=== PATIENT | female | born 1970 | race Caucasian/White ===

== ENCOUNTER → 2020-01-13 | Day surgery (SDC) | payer BC, OTHER ==
[~2020-01-13] MED LIST: Lactated Ringers 1,000 ML IV SCH; Propofol 200 MG/20 ML SDV IV ONE
[2020-01-13 10:26] VITALS: BP 142/85; PULSE 77
--- NOTE | 2020-01-13 14:16 | OR ---
DATE OF OPERATION: 01/13/2020 PREOPERATIVE DIAGNOSIS: SCREENING COLONOSCOPY. POSTOPERATIVE DIAGNOSIS: SCREENING COLONOSCOPY. SURGEON: Mike Wright MD PROCEDURE: FULL-LENGTH COLONOSCOPY WITH SNARE POLYPECTOMY X2. ANESTHESIA: MAC. COMPLICATIONS: None. SPECIMEN: Two large tubulovillous adenomas, right colon. FINDINGS: 1. Full-length colonoscopy. 2. Pandiverticulosis, moderate. 3. Tubulovillous adenomas, cecum and hepatic flexure. RECOMMENDATIONS: Followup colonoscopy in 3 years. INDICATIONS: The patient was sent for a screening colonoscopy due to her age. DESCRIPTION OF PROCEDURE: The patient was prepped and draped, placed in the left lateral decubitus position. A lubricated Olympus colonoscope was inserted and easily advanced to the cecum. Direct visualization of the ileocecal valve and appendiceal orifice was accomplished. The bowel prep was fine. Upon withdrawal of the scope, right outside the ileocecal valve, the patient had a slightly stalked tubulovillous adenoma, about 8 mm in size, removed with a snare and suctioned into polyp trap #1. The rest of the ascending colon was benign. Just past the hepatic flexure, the patient had a deeper villous adenoma in the haustral fold. We were able to get a snare around this, remove it without problem, and suction into polyp trap #2 without problem. This was close to a centimeter in size. The rest of the transverse and descending colon were unremarkable. The patient does have diverticular disease even over the right colon, most significant in the sigmoid as expected. The left colon had no other polyps, masses, ulceration, or bleeding sites. No vascular abnormalities or signs of colitis. Rectal vault was benign. Retroflexion of the scope in the rectum showed no anal lesions. Air was suctioned, scope removed without complication. JACOBY/FLORESITA /[id number]
== END ==
LOC: CC.SDS 08:18
PROVIDERS: ATTEND Family Medicine
DX: Z12.11 Encounter for screening for malignant neoplasm of colon (principal); D12.0 Benign neoplasm of cecum; D12.3 Benign neoplasm of transverse colon; K57.30 Diverticulosis of large intestine without perforation or abscess without bleeding; I10 Essential (primary) hypertension; M17.32 Unilateral post-traumatic osteoarthritis, left knee; G44.209 Tension-type headache, unspecified, not intractable; F17.210 Nicotine dependence, cigarettes, uncomplicated; Z79.899 Other long term (current) drug therapy
CPT/HCPCS: 45385; J2704; J7120

== ENCOUNTER 2020-03-23 22:40 | Observation (INO) | payer BC ==
[2020-03-23] MEDS: Aspirin 81 MG Tab.Chew PO ONE (22:55)
[2020-03-23] MEDS: EPINEPHrine 1 MG/1 ML Amp SUBCUT ONE (23:25)
[2020-03-23] MEDS: Albuterol/Ipratropium 3.0-0.5 MG/3 ML Neb Soln NEB ONE (23:28)
[2020-03-23] MEDS: diphenhydrAMINE 50 MG/ML SDV IVPUSH ONE (23:28)
[2020-03-23] MEDS: methylPREDNISolone Sodium Succinate 125 MG/2 ML SDV IVPUSH STA (23:29)
[2020-03-23 23:32] LABS: CHLORIDE,CL 100 mEq/L (98-106); SODIUM,NA 137 mEq/L (136-145)
[2020-03-23] MEDS: Famotidine 20 MG/2 ML SDV IVPUSH ONE (23:33)
--- NOTE | 2020-03-23 23:33 | EDM.PDOC ---
ED HPI GENERAL MEDICAL PROBLEM - General Chief Complaint: Chest Pain Stated Complaint: chest pain, short of breath Time Seen by Provider: 03/23/20 23:23 Source of Information: Reports: Patient History Limitations: Reports: No Limitations - History of Present Illness INITIAL COMMENTS - FREE TEXT/NARRATIVE: This patient is a 49 year old female that presents to the ER. Patient reports that a couple of hours ago she got some bad news about her sister, then got in an argument with her 14 year old son. She reports at that time 2 hours ago, she started to have pain in her left chest that is tight pressure. She reports with it she had some reflux. She reports she became nauseated and short of breath with it. She reports it became very hard to breath and her chest became tight with pain continued in her left chest. She reports she felt flushed. She reports this pain and tightness and shortness of breath worsened. She reports she could not breath and the pain made her come to the ER. When I enter the room , patient face is erythematous, swollen. Patient has rash to RUE and abd appearance consistent with hives. Patient reports it feels like she cant breath and her chest hurts and she feels nauseated. She reports her pain in chest is 7/ 10. Patient appears to be having an anaphylaxis. Medications ordered. Onset: Today Onset Date: 03/23/20 Onset Time: 09:30 Duration: Hour(s): (2), Getting Worse Location: Reports: Face, Chest, Abdomen Front/Back Body Image: 1 - erythema, swelling 2 - erythema 3 - erythema Severity: Severe Improves with: Reports: None Worsens with: Reports: None Associated Symptoms: Reports: Diaphoresis, Rash, Shortness of Breath Left Chest Pain Score (Numeric/FACES): 5 - Related Data Allergies Allergy/AdvReac Type Severity Reaction Status Date / Time No Known Allergies Allergy Verified 03/23/20 23:43 Home Meds: Home Meds . [No Known Home Meds] 03/23/20 [History] Past Medical History - Past Surgical History Musculoskeletal Surgical History: Reports: Other (See Below) ED ROS ALLERGIC REACTION - Review of Systems Review Of Systems: See Below Constitutional: Reports: Diaphoresis HEENT: Reports: Throat Swelling, Other (facial swelling, facial redness.) Respiratory: Reports: Shortness of Breath, Wheezing, Other (chest tightness) Cardiovascular: Reports: Chest Pain Endocrine: Reports: No Symptoms GI/Abdominal: Reports: Abdominal Pain, Nausea, Other (reflux sensation). Denies : Vomiting : Reports: No Symptoms Musculoskeletal: Reports: No Symptoms Skin: Reports: Rash (RUE, face, abd.), Erythema Neurological: Reports: No Symptoms. Denies: Confusion, Dizziness, Headache, Seizure, Syncope, Tremors, Difficulty Walking, Weakness, Change in Speech, Gait Disturbance Psychiatric: Reports: Anxiety Hematologic/Lymphatic: Reports: No Symptoms Immunologic: Reports: Anaphylaxis ED EXAM GENERAL NO PERIP PULSE - Physical Exam Exam: See Below Exam Limited By: No Limitations General Appearance: Alert, Anxious, Moderate Distress Eye Exam: Bilateral Eye: EOMI, Normal Inspection, Vision Changes Ears: Normal External Exam, Normal Canal, Hearing Grossly Normal, Normal TMs Nose: Normal Inspection, Normal Mucosa, No Blood Throat/Mouth: Normal Inspection, Normal Lips, Normal Teeth, Normal Gums, Normal Oropharynx, Normal Voice. No: Inflammation (facial), Perioral Cyanosis Head: Facial Swelling (with erythema entire face. no lips or tongue) Neck: Normal Inspection, Supple, Non-Tender, Full Range of Motion. No: Lymphadenopathy (L), Lymphadenopathy (R) Respiratory/Chest: Decreased Breath Sounds (mild), Wheezing Cardiovascular: Normal Peripheral Pulses, Regular Rate, Rhythm, No Edema, No Gallop, No JVD, No Murmur, No Rub GI/Abdominal: Normal Bowel Sounds, Soft, Non-Tender, No Organomegaly, No Distention, No Abnormal Bruit, Pelvis Stable Back Exam: Normal Inspection, Full Range of Motion. No: CVA Tenderness (L), CVA Tenderness (R) Extremities: Redness (hive like rash RUE.) Neurological: Alert, Oriented, Normal Cognition, Normal Gait, No Motor/Sensory Deficits. No: Abnormal Gait Psychiatric: Anxious Skin Exam: Erythema (entire face), Rash (hive like rash RUE and abdomen) Lymphatic: No Adenopathy Course - Vital Signs Last Recorded V/S: Last Vital Signs Temp 97.9 F 03/24/20 00:06 Pulse 92 03/24/20 00:06 Resp 16 03/24/20 00:06 BP 112/67 03/24/20 00:06 Pulse Ox 99 03/24/20 00:06 - Orders/Labs/Meds Orders: Active Orders 24 hr Category Date Time Status Cardiac Monitoring [RC] . DIRECTED Care 03/23/20 23:27 Active Oxygen Therapy, ED [RC] ASDIRECTED Care 03/23/20 22:52 Active RT Aerosol Therapy [RC] ASDIRECTED Care 03/23/20 23:25 Active Chest 2V [CR] Stat Exams 03/23/20 22:49 Taken Labs: Laboratory Tests 03/23/20 03/23/20 03/23/20 Range/Units 22:49 22:50 22:50 WBC 9.1 (5.0-10.0) 10^3/uL RBC 4.92 (4.00-5.50) 10^6/uL Hgb 15.2 (12.0-16.0) g/dL Hct 44.4 (37.0-47.0) % MCV 90.2 (82.0-94.0) fL MCH 30.9 (27.0-32.0) pg MCHC 34.2 (33.0-38.0) g/dL RDW Coeff of Sharmila 14.2 (11.0-15.0) % Plt Count 372 (150-400) 10^3/uL Neut % (Auto) 32.7 L (35-85) % Lymph % (Auto) 56.8 H (10-55) % Floyd % (Auto) 5.4 (0-16) % Eos % (Auto) 4.4 (0-5) % Baso % (Auto) 0.7 (0-3) % Neut # (Auto) 2.98 (1.80-7.00) 10^3/uL Lymph # (Auto) 5.16 H (1.00-4.80) 10^3/uL Floyd # (Auto) 0.49 (0.00-0.80) 10^3/uL Eos # (Auto) 0.40 (0.00-0.45) 10^3/uL Baso # (Auto) 0.06 10^3/uL PT 9.9 (9.7-12.3) SEC INR 0.98 (0.92-1.18) APTT 23.4 (23.2-32.3) SEC D-Dimer, Quantitative 0.38 (0.00-0.50) Sodium 137 (136-145) mEq/L Potassium 2.8 L* D (3.5-5.0) mEq/L Chloride 100 (98-106) mEq/L Carbon Dioxide 21 (21-32) mmol/L BUN 7 (7-18) mg/dL Creatinine 0.9 (0.6-1.0) mg/dL Est Cr Clr Drug Dosing TNP Estimated GFR (MDRD) > 60 (>=60) mL/min Glucose 98 (75-99) mg/dL Calcium 8.3 L (8.4-10.1) mg/dL Total Bilirubin 0.3 (0.0-1.0) mg/dL AST 22 (15-37) U/L ALT 29 (12-78) U/L Alkaline Phosphatase 103 (46-116) U/L Lactate Dehydrogenase 159 (100-190) U/L Creatine Kinase 85 (21-215) U/L Troponin I < 0.017 (0.00-0.06) ng/mL Total Protein 6.8 (6.4-8.2) g/dL Albumin 3.2 L (3.4-5.0) g/dL Lipase 95 (73-393) U/L Ethyl Alcohol (0-3) mg/dL 03/23/20 Range/Units 23:36 WBC (5.0-10.0) 10^3/uL RBC (4.00-5.50) 10^6/uL Hgb (12.0-16.0) g/dL Hct (37.0-47.0) % MCV (82.0-94.0) fL MCH (27.0-32.0) pg MCHC (33.0-38.0) g/dL RDW Coeff of Sharmila (11.0-15.0) % Plt Count (150-400) 10^3/uL Neut % (Auto) (35-85) % Lymph % (Auto) (10-55) % Floyd % (Auto) (0-16) % Eos % (Auto) (0-5) % Baso % (Auto) (0-3) % Neut # (Auto) (1.80-7.00) 10^3/uL Lymph # (Auto) (1.00-4.80) 10^3/uL Floyd # (Auto) (0.00-0.80) 10^3/uL Eos # (Auto) (0.00-0.45) 10^3/uL Baso # (Auto) 10^3/uL PT (9.7-12.3) SEC INR (0.92-1.18) APTT (23.2-32.3) SEC D-Dimer, Quantitative (0.00-0.50) Sodium (136-145) mEq/L Potassium (3.5-5.0) mEq/L Chloride (98-106) mEq/L Carbon Dioxide (21-32) mmol/L BUN (7-18) mg/dL Creatinine (0.6-1.0) mg/dL Est Cr Clr Drug Dosing Estimated GFR (MDRD) (>=60) mL/min Glucose (75-99) mg/dL Calcium (8.4-10.1) mg/dL Total Bilirubin (0.0-1.0) mg/dL AST (15-37) U/L ALT (12-78) U/L Alkaline Phosphatase (46-116) U/L Lactate Dehydrogenase (100-190) U/L Creatine Kinase (21-215) U/L Troponin I (0.00-0.06) ng/mL Total Protein (6.4-8.2) g/dL Albumin (3.4-5.0) g/dL Lipase (73-393) U/L Ethyl Alcohol 138 H (0-3) mg/dL Meds: Medications Discontinued Medications Generic Name Dose Route Start Last Admin Trade Name Freq PRN Reason Stop Dose Admin Albuterol/Ipratropium 3 ml 03/23/20 23:24 03/23/20 23:28 Duoneb 3.0-0.5 Mg/3 Ml NEB 03/23/20 23:25 3 ml ONETIME ONE Administration Albuterol/Ipratropium Confirm 03/23/20 23:09 03/23/20 23:50 Duoneb 3.0-0.5 Mg/3 Ml Administered 03/23/20 23:10 Not Given Dose 3 ml .ROUTE .STK-MED ONE Aspirin 324 mg 03/23/20 22:49 03/23/20 22:55 Aspirin PO 03/23/20 22:50 324 mg ONETIME ONE Administration Diphenhydramine HCl 50 mg 03/23/20 23:24 03/23/20 23:28 Benadryl IVPUSH 03/23/20 23:25 50 mg ONETIME ONE Administration Epinephrine HCl 0.3 mg 03/23/20 23:26 03/23/20 23:25 Adrenalin SUBCUT 03/23/20 23:27 0.3 mg ONETIME ONE Administration Famotidine 20 mg 03/23/20 23:25 03/23/20 23:33 Pepcid IVPUSH 03/23/20 23:26 20 mg ONETIME ONE Administration Sodium Chloride 1,000 mls @ 1,000 mls/hr 03/24/20 00:03 Normal Saline IV 03/24/20 01:02 .BOLUS ONE Methylprednisolone Sodium Succinate 125 mg 03/23/20 23:25 03/23/20 23:29 Solu-Medrol IVPUSH 03/23/20 23:26 125 mg NOW STA Administration - Re-Assessments/Exams Free Text/Narrative Re-Assessment/Exam: 03/23/20 23:56 Patient does report that her breathing has improved some. She is currently at 99 % on 2L NC. Her facial swelling has improved significantly, along with her erythema to face. Her hive like rash to the RUE and Abd are resolved. Lungs are sounding more clear. The patient does report her deleon in her left chest is still 5/10. Patient does report that she is a smoker. She reports she was diagnosed with HTN, but could not afford medications. She reports that she drinks about 1- 2 days per week, about 9-10 beers each time. 03/24/20 00:20 The patient reports her chest pain is now down to a 4/10. She reports she is starting to feel much better. She looks much more comfortable. She is no longer jittery, erythema resolved, facial swelling resolved. She reports she is no longer short of breath. I will admit patient, repeat cardiac labs, and monitoring and evaluation advisor. Will also start on K+. Departure - Departure Time of Disposition: 00:23 Disposition: Refer to Observation Condition: Fair Clinical Impression: Hypokalemia, Atypical chest pain Anaphylactic reaction Qualifiers: Encounter type: initial encounter Qualified Code(s): T78.2XXA - Anaphylactic shock, unspecified, initial encounter - Discharge Information *PRESCRIPTION DRUG MONITORING PROGRAM REVIEWED*: Not Applicable *COPY OF PRESCRIPTION DRUG MONITORING REPORT IN PATIENT ELMER: Not Applicable Referrals: PCP,None [Primary Care Provider] - Forms: ED Department Discharge Sepsis Event Note - Focused Exam Vital Signs: Vital Signs Temp Pulse Resp BP Pulse Ox 03/24/20 00:06 97.9 F 92 16 112/67 99 03/23/20 23:45 96.9 F 82 16 129/79 99 03/23/20 23:25 98.4 F 81 16 130/73 99 03/23/20 23:10 91 18 138/81 96 03/23/20 22:55 81 16 112/66 95 03/23/20 22:40 98.4 F 81 20 130/73 94 L Date Exam was Performed: 03/24/20 Time Exam was Performed: 00:23 - My Orders Last 24 Hours: My Active Orders 03/23/20 22:49 Chest 2V [CR] Stat 03/23/20 22:52 Oxygen Therapy, ED [RC] ASDIRECTED 03/23/20 23:25 RT Aerosol Therapy [RC] ASDIRECTED 03/23/20 23:27 Cardiac Monitoring [RC] . DIRECTED - Assessment/Plan Last 24 Hours: My Active Orders 03/23/20 22:49 Chest 2V [CR] Stat 03/23/20 22:52 Oxygen Therapy, ED [RC] ASDIRECTED 03/23/20 23:25 RT Aerosol Therapy [RC] ASDIRECTED 03/23/20 23:27 Cardiac Monitoring [RC] . DIRECTED Plan: PLEASE SEE RN NOTE FOR PFSH PLEASE USE ER H&P ADMIT H&P
[2020-03-23 23:41] LABS: PTT,PARTIAL THROMBOPLSTIN TIME 23.4 SEC (23.2-32.3)
[2020-03-23] MEDS: Albuterol/Ipratropium 3.0-0.5 MG/3 ML Neb Soln ONE (23:50)
[2020-03-24] MEDS ORDERED: Acetaminophen/HYDROcodone 325-5 MG Tab PO PRN (00:47)
[2020-03-24] MEDS ORDERED: Albuterol/Ipratropium 3.0-0.5 MG/3 ML Neb Soln NEB PRN (00:47)
[2020-03-24] MEDS ORDERED: Ondansetron 4 MG/2 ML SDV IV PRN (00:47)
[2020-03-24] MEDS ORDERED: Ibuprofen 200 MG Tab PO PRN (00:47)
[2020-03-24] MEDS ORDERED: Morphine 2 MG/ML Syringe IVPUSH PRN (00:47)
[2020-03-24] MEDS: NS + KCl 20mEq/L 1,000 ML IV SCH (01:24)
[2020-03-24] MEDS: Sodium Chloride 0.9% 1,000 ML IV ONE (02:43)
[2020-03-24 08:20] VITALS: BP 127/76; PULSE 72
--- NOTE | 2020-03-24 09:31 | PCM.DCSUM1 ---
Discharge Summary - Hospital Course HPI Initial Comments: This patient was admitted for anaphylaxis reaction and chest pain and hypokalemia. All have been corrected. Her Potassium is now wnl. Her chest pain and shortness of breath and rash is completely resolved. I will discharge this patient. I discussed with the patient that she should see her PCP this week for followup and will prescribe an epi pen as needed. I did explain to her that her troponins and ekg were okay, but if her pain in chest returns she should return to the ER, and discuss this with her PCP for possible stress test. But, I do believe it was related to her allergic reaction since it is now resolved. - Discharge Data Discharge Date: 03/24/20 Discharge Disposition: Home, Self-Care 01 Condition: Good - Referral to Home Health Primary Care Physician: PCP None - Patient Instructions Diet: Usual Diet as Tolerated Activity: As Tolerated Driving: May Drive Today Showering/Bathing: May Shower Notify Provider of: Fever, Increased Pain, Swelling and Redness, Drainage, Nausea and/or Vomiting Other/Special Instructions: Followup with your primary care provider this week. Return to the ER for worsening of condition or any emergent concerns. Use Epi Pen as needed for severe allergic reaction - Discharge Plan *PRESCRIPTION DRUG MONITORING PROGRAM REVIEWED*: Not Applicable *COPY OF PRESCRIPTION DRUG MONITORING REPORT IN PATIENT [place]: Not Applicable Prescriptions/Med Rec: EPINEPHrine [Epipen 2-Angel] 0.3 mg IJ ASDIRECTED #1 auto.injct Home Medications: Home Meds EPINEPHrine [Epipen 2-Angel] 0.3 mg IJ ASDIRECTED #1 auto.injct 03/24/20 [Rx] Oxygen Therapy Mode: Room Air Patient Handouts: Epinephrine Injection, Anaphylactic Reaction, Adult, Easy-to- Read Forms: ED Department Discharge Referrals: PCP,None [Primary Care Provider] - - Discharge Summary/Plan Comment DC Time >30 min.: No Discharge Summary/Plan Comment: Patient is to followup with her PCP this week for a recheck. She has low HEART score and her CP is resolved. If this continues, she should be evaluated by her PCP and possible stress test. - General Info Functional Status: Reports: Pain Controlled, Tolerating Diet, Ambulating, Urinating - Review of Systems General: Reports: No Symptoms HEENT: Reports: No Symptoms Pulmonary: Reports: No Symptoms. Denies: Shortness of Breath, Pleuritic Chest Pain, Cough, Sputum, Hemoptysis, Wheezing Cardiovascular: Reports: No Symptoms. Denies: Chest Pain, Palpitations, Dyspnea on Exertion, Edema, Lightheadedness Gastrointestinal: Reports: No Symptoms. Denies: Abdominal Pain, Nausea, Vomiting Genitourinary: Reports: No Symptoms Musculoskeletal: Reports: No Symptoms Skin: Reports: No Symptoms Neurological: Reports: No Symptoms Psychiatric: Reports: No Symptoms - Patient Data Vitals - Most Recent: Last Vital Signs Temp 99.1 F 03/24/20 08:00 Pulse 72 03/24/20 08:00 Resp 18 03/24/20 08:00 BP 127/76 03/24/20 08:00 Pulse Ox 98 03/24/20 08:00 Weight - Most Recent: 213 lb 4.8 oz Lab Results - Last 24 hrs: Laboratory Results - last 24 hr 03/23/20 03/23/20 03/23/20 Range/Units 22:49 22:50 22:50 WBC 9.1 (5.0-10.0) 10^3/uL RBC 4.92 (4.00-5.50) 10^6/uL Hgb 15.2 (12.0-16.0) g/dL Hct 44.4 (37.0-47.0) % MCV 90.2 (82.0-94.0) fL MCH 30.9 (27.0-32.0) pg MCHC 34.2 (33.0-38.0) g/dL RDW Coeff of Sharmila 14.2 (11.0-15.0) % Plt Count 372 (150-400) 10^3/uL Neut % (Auto) 32.7 L (35-85) % Lymph % (Auto) 56.8 H (10-55) % Finney % (Auto) 5.4 (0-16) % Eos % (Auto) 4.4 (0-5) % Baso % (Auto) 0.7 (0-3) % Neut # (Auto) 2.98 (1.80-7.00) 10^3/uL Lymph # (Auto) 5.16 H (1.00-4.80) 10^3/uL Finney # (Auto) 0.49 (0.00-0.80) 10^3/uL Eos # (Auto) 0.40 (0.00-0.45) 10^3/uL Baso # (Auto) 0.06 10^3/uL PT 9.9 (9.7-12.3) SEC INR 0.98 (0.92-1.18) APTT 23.4 (23.2-32.3) SEC D-Dimer, Quantitative 0.38 (0.00-0.50) Sodium 137 (136-145) mEq/L Potassium 2.8 L* D (3.5-5.0) mEq/L Chloride 100 (98-106) mEq/L Carbon Dioxide 21 (21-32) mmol/L BUN 7 (7-18) mg/dL Creatinine 0.9 (0.6-1.0) mg/dL Est Cr Clr Drug Dosing TNP Estimated GFR (MDRD) > 60 (>=60) mL/min Glucose 98 (75-99) mg/dL Calcium 8.3 L (8.4-10.1) mg/dL Total Bilirubin 0.3 (0.0-1.0) mg/dL AST 22 (15-37) U/L ALT 29 (12-78) U/L Alkaline Phosphatase 103 (46-116) U/L Lactate Dehydrogenase 159 (100-190) U/L Creatine Kinase 85 (21-215) U/L Troponin I < 0.017 (0.00-0.06) ng/mL Total Protein 6.8 (6.4-8.2) g/dL Albumin 3.2 L (3.4-5.0) g/dL Lipase 95 (73-393) U/L Ethyl Alcohol (0-3) mg/dL 03/23/20 03/24/20 03/24/20 Range/Units 23:36 02:00 05:11 WBC 5.1 (5.0-10.0) 10^3/uL RBC 4.86 (4.00-5.50) 10^6/uL Hgb 14.9 (12.0-16.0) g/dL Hct 44.3 (37.0-47.0) % MCV 91.2 (82.0-94.0) fL MCH 30.7 (27.0-32.0) pg MCHC 33.6 (33.0-38.0) g/dL RDW Coeff of Sharmila 14.3 (11.0-15.0) % Plt Count 372 (150-400) 10^3/uL Neut % (Auto) 72.3 (35-85) % Lymph % (Auto) 26.5 (10-55) % Finney % (Auto) 0.6 (0-16) % Eos % (Auto) 0.2 (0-5) % Baso % (Auto) 0.4 (0-3) % Neut # (Auto) 3.71 (1.80-7.00) 10^3/uL Lymph # (Auto) 1.36 (1.00-4.80) 10^3/uL Finney # (Auto) 0.03 (0.00-0.80) 10^3/uL Eos # (Auto) 0.01 (0.00-0.45) 10^3/uL Baso # (Auto) 0.02 10^3/uL PT (9.7-12.3) SEC INR (0.92-1.18) APTT (23.2-32.3) SEC D-Dimer, Quantitative (0.00-0.50) Sodium (136-145) mEq/L Potassium (3.5-5.0) mEq/L Chloride (98-106) mEq/L Carbon Dioxide (21-32) mmol/L BUN (7-18) mg/dL Creatinine (0.6-1.0) mg/dL Est Cr Clr Drug Dosing Estimated GFR (MDRD) (>=60) mL/min Glucose (75-99) mg/dL Calcium (8.4-10.1) mg/dL Total Bilirubin (0.0-1.0) mg/dL AST (15-37) U/L ALT (12-78) U/L Alkaline Phosphatase (46-116) U/L Lactate Dehydrogenase (100-190) U/L Creatine Kinase (21-215) U/L Troponin I < 0.017 (0.00-0.06) ng/mL Total Protein (6.4-8.2) g/dL Albumin (3.4-5.0) g/dL Lipase (73-393) U/L Ethyl Alcohol 138 H (0-3) mg/dL 03/24/20 03/24/20 Range/Units 05:11 07:00 WBC (5.0-10.0) 10^3/uL RBC (4.00-5.50) 10^6/uL Hgb (12.0-16.0) g/dL Hct (37.0-47.0) % MCV (82.0-94.0) fL MCH (27.0-32.0) pg MCHC (33.0-38.0) g/dL RDW Coeff of Sharmila (11.0-15.0) % Plt Count (150-400) 10^3/uL Neut % (Auto) (35-85) % Lymph % (Auto) (10-55) % Finney % (Auto) (0-16) % Eos % (Auto) (0-5) % Baso % (Auto) (0-3) % Neut # (Auto) (1.80-7.00) 10^3/uL Lymph # (Auto) (1.00-4.80) 10^3/uL Finney # (Auto) (0.00-0.80) 10^3/uL Eos # (Auto) (0.00-0.45) 10^3/uL Baso # (Auto) 10^3/uL PT (9.7-12.3) SEC INR (0.92-1.18) APTT (23.2-32.3) SEC D-Dimer, Quantitative (0.00-0.50) Sodium 139 (136-145) mEq/L Potassium 4.2 D (3.5-5.0) mEq/L Chloride 104 (98-106) mEq/L Carbon Dioxide 23 (21-32) mmol/L BUN 9 (7-18) mg/dL Creatinine 1.0 (0.6-1.0) mg/dL Est Cr Clr Drug Dosing 59.89 Estimated GFR (MDRD) 58 L (>=60) mL/min Glucose 147 H D (75-99) mg/dL Calcium 8.5 (8.4-10.1) mg/dL Total Bilirubin (0.0-1.0) mg/dL AST (15-37) U/L ALT (12-78) U/L Alkaline Phosphatase (46-116) U/L Lactate Dehydrogenase (100-190) U/L Creatine Kinase (21-215) U/L Troponin I < 0.017 (0.00-0.06) ng/mL Total Protein (6.4-8.2) g/dL Albumin (3.4-5.0) g/dL Lipase (73-393) U/L Ethyl Alcohol (0-3) mg/dL Med Orders - Current: Current Medications Hydrocodone Bitart/Acetaminophen ([place] 325-5 Mg) 1 tab PO Q4H PRN PRN Reason: Pain (moderate 4-6) Albuterol/Ipratropium (Duoneb 3.0-0.5 Mg/3 Ml) 3 ml NEB Q4H PRN PRN Reason: Shortness Of Breath/wheezing Ibuprofen (Motrin) 600 mg PO Q6H PRN PRN Reason: Pain (mild 1-3) Morphine Sulfate (Morphine) 2 mg IVPUSH Q2H PRN PRN Reason: Pain (severe 7-10) Ondansetron HCl (Zofran) 4 mg IV Q6H PRN PRN Reason: Nausea/Vomiting Discontinued Medications Albuterol/Ipratropium (Duoneb 3.0-0.5 Mg/3 Ml) 3 ml NEB ONETIME ONE Stop: 03/23/20 23:25 Last Admin: 03/23/20 23:28 Dose: 3 ml Albuterol/Ipratropium (Duoneb 3.0-0.5 Mg/3 Ml) Confirm Administered Dose 3 ml .ROUTE .STK-MED ONE Stop: 03/23/20 23:10 Last Admin: 03/23/20 23:50 Dose: Not Given Aspirin (Aspirin) 324 mg PO ONETIME ONE Stop: 03/23/20 22:50 Last Admin: 03/23/20 22:55 Dose: 324 mg Diphenhydramine HCl (Benadryl) 50 mg IVPUSH ONETIME ONE Stop: 03/23/20 23:25 Last Admin: 03/23/20 23:28 Dose: 50 mg Epinephrine HCl (Adrenalin) 0.3 mg SUBCUT ONETIME ONE Stop: 03/23/20 23:27 Last Admin: 03/23/20 23:25 Dose: 0.3 mg Famotidine (Pepcid) 20 mg IVPUSH ONETIME ONE Stop: 03/23/20 23:26 Last Admin: 03/23/20 23:33 Dose: 20 mg Sodium Chloride (Normal Saline) 1,000 mls @ 1,000 mls/hr IV .BOLUS ONE Stop: 03/24/20 01:02 Last Admin: 03/24/20 02:43 Dose: Not Given Potassium Chloride/Sodium Chloride (Normal Saline With 20 Meq Kcl) 1,000 mls @ 100 mls/hr IV ASDIRECTED CHIO Stop: 03/24/20 09:00 Last Admin: 03/24/20 01:24 Dose: 100 mls/hr Methylprednisolone Sodium Succinate (Solu-Medrol) 125 mg IVPUSH NOW STA Stop: 03/23/20 23:26 Last Admin: 03/23/20 23:29 Dose: 125 mg - Exam General: Reports: Alert, Oriented, Cooperative, No Acute Distress Neck: Reports: Supple, Trachea Midline, No JVD Lungs: Reports: Clear to Auscultation, Normal Respiratory Effort. Denies: Decreased Breath Sounds, Wheezing Cardiovascular: Reports: Regular Rate, Regular Rhythm GI/Abdominal Exam: Normal Bowel Sounds, Soft, Non-Tender Back Exam: Reports: Normal Inspection Extremities: Normal Inspection, Normal Range of Motion, Non-Tender, No Pedal Edema, Normal Capillary Refill Skin: Reports: Warm, Dry, Intact Neurological: Reports: No New Focal Deficit, Normal Gait, Normal Speech Psy/Mental Status: Reports: Alert, Normal Affect, Normal Mood EKG INTERPRETATION EKG Date: 03/24/20 Time: 08:10 Rhythm: NSR Rate (Beats/Min): 72 ST-T: Normal Comparison: No Change
== END 2020-03-24 10:00 | disposition home or self-care (01) ==
LOC: CC.ED 22:40 → CC.MS 03-24 00:25 → UNDOADMOB 03-24 00:26 → UNDODISOB 03-24 10:00
PROVIDERS: ADMIT Nurse Practitioner; ATTEND Family Medicine
DX: R07.89 Other chest pain (principal); E87.6 Hypokalemia; T78.2XXA Anaphylactic shock, unspecified, initial encounter
CPT/HCPCS: 36415; 71046; 80048; 80053; 80307; 82550; 83615; 83690; 84484; 85025; 85379; 85610; 85730; 93005; 94640; 96365; 96366; 96372; 96374; 96375; 99285-25; A9270-GY; G0378; J0171; J1200; J2930; J3480; J3490; J7620-GY

== ENCOUNTER 2025-06-01 09:58 | Emergency (ER) | payer OTHER, BC ==
[2025-06-01 10:24] VITALS: BP 187/99; PULSE 80
== END 2025-06-01 10:35 | disposition home or self-care (01) ==
LOC: CC.ED 09:58 → SUPCPDRO 09:58 → CC.ED 10:35
DX: S63.635A Sprain of interphalangeal joint of left ring finger, initial encounter (principal); I10 Essential (primary) hypertension; X58.XXXA Exposure to other specified factors, initial encounter; Y93.89 Activity, other specified; Y99.0 Civilian activity done for income or pay
CPT/HCPCS: 73140-F3; 99283